=== PATIENT | female | born 1935 | race American Indian/Alaskan Native ===

== ENCOUNTER 2017-01-21 00:40 | Inpatient (IN) | payer MEDICARE ==
[2017-01-21] MEDS ORDERED: Sodium Chloride 0.9% 1,000 ML IV STA (01:13)
--- NOTE | 2017-01-21 01:15 | C.PDOC ---
History Of Present Illness 81 y/o F c PMHx HTN, DM p/w abdominal pain x 1 day. Pain is squeezing, intermittent, severe, diffuse, non-radiating, and associated with NBNB vomiting x 4. Denies fever, chest pain, dyspnea, back pain, dysuria, diarrhea, constipation. Time Seen by Provider: 01/21/17 00:54 Chief Complaint (Nursing): Abdominal Pain History Per: Patient History/Exam Limitations: no limitations Onset/Duration Of Symptoms: Days (1), Intermittent Episodes Current Symptoms Are (Timing): Still Present Severity: Severe Location Of Pain/Discomfort: Diffuse Radiation Of Pain To:: None Quality Of Discomfort: Pressure Associated Symptoms: Vomiting (NBNB, x4). denies: Fever, Diarrhea, Constipation , Urinary Symptoms Exacerbating Factors: None Alleviating Factors: None Recent travel outside of the [place]: No Additional History Per: Patient Past Medical History Reviewed: Historical Data, Nursing Documentation, Vital Signs Vital Signs: Last Vital Signs Temp 98.4 F 01/21/17 15:58 Pulse 66 01/21/17 15:58 Resp 20 01/21/17 15:58 BP 126/75 01/21/17 15:58 Pulse Ox 96 01/21/17 15:58 Family History: States: Unknown Family Hx - Social History Hx Alcohol Use: No Hx Substance Use: No - Immunization History Hx Tetanus Toxoid Vaccination: No Hx Influenza Vaccination: No Hx Pneumococcal Vaccination: No Review Of Systems Except As Marked, All Systems Reviewed And Found Negative. Constitutional: Negative for: Fever Cardiovascular: Negative for: Chest Pain Gastrointestinal: Positive for: Vomiting (NBNB, x4), Abdominal Pain Physical Exam - Physical Exam Additional Physical Exam Comments: Constitutional: No acute distress. Head: Normocephalic. Atraumatic. Eyes: PERRL. ENT: Moist mucous membranes. Neck: Supple. Cardiovascular: Regular rate. Radial pulse 2+ bilaterally. Chest: No tenderness. Respiratory: Clear to auscultation bilaterally. GI: Soft. Epigastric tenderness. Back: No CVA tenderness. Musculoskeletal: No tenderness or swelling of extremities. Skin: No rash. Neurologic: Alert, no focal deficit. ED Course And Treatment - Laboratory Results Result Diagrams: 01/21/17 01:18 01/21/17 01:18 O2 Sat by Pulse Oximetry: 100 (RA) Pulse Ox Interpretation: Normal Medical Decision Making Medical Decision Making: Plans: * CT Abd/Pel w/ IV * Blood work up * Morphine * Zofran * IV fluids * UA ED OBSERVATION Date of observation admission: 01/21/17 Time of observation admission: 01:13 - Observation admission statement Patient is being placed in observation because:: abd pain - Goals of Observation Goals of observation are:: CT - Progress Note Progress Note: [address] No acute distress. Labs unremarkable. [address] read. 0445 IMPRESSION: Dilated fluid-filled small bowel loops most notably in the left upper quadrant where there is tethered mesenteric stranding and adjacent free fluid. There are nondilated small bowel loops elsewhere. Findings concerning for internal hernia/closed-loop obstruction. 0540 Dr. Jackson paged. Patient states she feels better. No more vomiting in ED. EKG NSR 90 bpm, RBBB, no ST elevations. [address] Jackson's call back. Dr. Bolaños accepts patient to medical service and Dr. Chang consulted for surgery. Disposition - Disposition Disposition: HOSPITALIZED Disposition Time: 01:13 Condition: GUARDED - Clinical Impression Clinical Impression: Bowel obstruction - Scribe Statement The provider has reviewed the documentation as recorded by the Scribe Ernesto hill All medical record entries made by the Jooibe were at my direction and personally dictated by me. I have reviewed the chart and agree that the record accurately reflects my personal performance of the history, physical exam, medical decision making, and the department course for this patient. I have also personally directed, reviewed, and agree with the discharge instructions and disposition.
[2017-01-21] MEDS ORDERED: Sodium Chloride 0.9% 1,000 ML ONE (01:19)
[2017-01-21] MEDS ORDERED: Morphine 4 MG/ML VIAL ONE (01:19)
[2017-01-21 01:22] LABS: BASO # 0.1 K/uL (0.0-0.2); BASO % 0.6 % (0.0-2.0); EOS # 0.2 K/uL (0.0-0.7); EOS % 1.4 % (0.0-4.0); HEMATOCRIT 37.7 % (34.0-47.0); LYMPH # 2.4 K/uL (1.0-4.3); LYMPH % 21.7 % (20.0-40.0); MEAN CELL VOLUME 86.9 fL (81.0-99.0); MEAN CORPUSCULAR HEMOGLOBIN 28.7 pg (27.0-31.0); MEAN CORPUSCULAR HGB CONC 33.1 g/dL (33.0-37.0); MONO # 0.4 K/uL (0.0-0.8); RED CELL DISTRIBUTION WIDTH 13.2 % (11.5-14.5); WHITE BLOOD COUNT 10.9 K/uL (4.8-10.8)
[2017-01-21 01:33] LABS: ALKALINE PHOSPHATASE 119 U/L (38-126); ALT/SGPT 28 U/L (9-52); AST/SGOT 27 U/L (14-36); BILIRUBIN,TOTAL 0.6 mg/dL (0.2-1.3); BLOOD UREA NITROGEN 18 mg/dL (7-17); CALCIUM 9.6 mg/dl (8.6-10.4); CARBON DIOXIDE 20 mmol/L (22-30); CHLORIDE 100 mmol/L (98-107); GFR AFRICAN-AMERICAN > 60; GLUCOSE,RANDOM 297 mg/dL (65-105); POTASSIUM 3.6 mmol/L (3.6-5.2); SODIUM 138 mmol/L (132-148)
[2017-01-21] MEDS ORDERED: Iodixanol 320 MG/ML 100 ML BOTTLE IV ONE (02:32)
[2017-01-21 02:48] LABS: RBC URINE 3 /hpf (0-3); URINE BILIRUBIN NEGATIVE (NEGATIVE); URINE BLOOD NEGATIVE (NEGATIVE); URINE COLOR Straw (YELLOW); URINE GLUCOSE (UA) 3+ mg/dL (Normal); URINE KETONE 1+ mg/dL (NEGATIVE); URINE LEUKOCYTE ESTERASE 2+ Leu/uL (Negative); URINE PROTEIN 1+ mg/dL (NEGATIVE); URINE UROBILINOGEN NORMAL mg/dL (0.2-1.0); WBC URINE 16 /hpf (0-5)
--- NOTE | 2017-01-21 04:46 | CT ---
EXAM: CT Abdomen and Pelvis With Intravenous Contrast EXAM DATE/TIME: 01/21/2017 1:13 AM CLINICAL HISTORY: 81 years old, female; Pain; Abdominal pain; Additional info: Abdominal pain, vomiting TECHNIQUE: Axial computed tomography images of the abdomen and pelvis with intravenous contrast. All CT scans at this facility use one or more dose reduction techniques, viz.: automated exposure control; ma/kV adjustment per patient size (including targeted exams where dose is matched to indication; i.e. head); or iterative reconstruction technique. Coronal and sagittal reformatted images were created and reviewed. CONTRAST: 100 mL of VISI administered intravenously. COMPARISON: No relevant prior studies available. FINDINGS: The liver is normal. The spleen is normal. The pancreas is normal. No gallstones. No hydronephrosis or perinephric stranding. Multiple low attenuation left renal lesions some of which represent cysts and some of which are too small to accurately characterize. There are dilated fluid-filled small bowel loops most notably in the left upper quadrant measuring up to 2.5 cm in diameter with prominent wall and fold enhancement. There is stranding in the adjacent mesentery. There are also nondilated small bowel loops. Stranding in the mesentery adjacent to the left upper quadrant dilated fluid-filled loops are somewhat tethered appearance, a finding frequently associated with internal hernia or closed-loop obstruction. Small amount of free fluid is present surrounding these loops. The colon appears normal. A normal appendix is identified coronal images 50 through 62. A small amount of free fluid is present in the pelvis, an abnormal finding for a patient of this age. IMPRESSION: Dilated fluid-filled small bowel loops most notably in the left upper quadrant where there is tethered mesenteric stranding and adjacent free fluid. There are nondilated small bowel loops elsewhere. Findings concerning for internal hernia/closed-loop obstruction.
--- NOTE | 2017-01-21 07:00 | CP.PCM.CON ---
History of Present Illness - History of Present Illness History of Present Illness: General Surgery- Dr. Chang 81F w/ PMHx of DM, HTN, HLD, presented to [facility] ED for crampy generalized abdominal pain that started at 16:00. Pt has had a BM, however no flatus in the past day. NBNB emesis x4, most recent in the ED with just gastric contents from the meal prior. Denies F/C CP/SOB Diarrhea, numbness or tingling in the extremities. PMH: noted above PSH: Cataracts ALL: NKDA SocialHx: denies etoh, tobacco, illicit drug use Review of Systems - Review of Systems All systems: reviewed and no additional remarkable complaints except - Constitutional Constitutional: As Per HPI Past Patient History - Past Social History Smoking Status: Never Smoked - PSYCHIATRIC Hx Substance Use: No Meds Allergies/Adverse Reactions: Allergies Allergy/AdvReac Type Severity Reaction Status Date / Time No Known Allergies Allergy Verified 01/21/17 01:41 Physical Exam - Constitutional Appears: No Acute Distress - Head Exam Head Exam: ATRAUMATIC - Eye Exam Eye Exam: EOMI - Respiratory Exam Respiratory Exam: Rales, NORMAL BREATHING PATTERN. absent: Accessory Muscle Use , Rhonchi - Cardiovascular Exam Cardiovascular Exam: +S1, +S2 - GI/Abdominal Exam GI & Abdominal Exam: Distended, Normal Bowel Sounds, Soft, Tenderness. absent: Firm, Guarding, Rigid Additional comments: TTP midepigastrum and right periumbilical - Neurological Exam Neurological exam: Alert, Oriented x3 - Psychiatric Exam Psychiatric exam: Normal Affect - Skin Skin Exam: Intact, Normal Color Results - Vital Signs Recent Vital Signs: Last Vital Signs Temp 97.8 F 01/21/17 06:16 Pulse 89 01/21/17 06:16 Resp 20 01/21/17 06:16 BP 136/66 01/21/17 06:16 Pulse Ox 98 01/21/17 06:16 - Labs Result Diagrams: 01/21/17 01:18 01/21/17 01:18 Labs: Laboratory Results - last 24 hr 01/21/17 01/21/17 01/21/17 01:18 01:18 01:46 WBC 10.9 H RBC 4.34 Hgb 12.5 Hct 37.7 MCV 86.9 MCH 28.7 MCHC 33.1 RDW 13.2 Plt Count 254 MPV 9.0 Neut % (Auto) 72.3 Lymph % (Auto) 21.7 [place] % (Auto) 4.0 Eos % (Auto) 1.4 Baso % (Auto) 0.6 Neut # 7.9 H Lymph # 2.4 [place] # 0.4 Eos # 0.2 Baso # 0.1 PT INR APTT Sodium 138 Potassium 3.6 Chloride 100 Carbon Dioxide 20 L Anion Gap 22 H BUN 18 H Creatinine 1.0 Est GFR ( Amer) > 60 Est GFR (Non-Af Amer) 53 Random Glucose 297 H Calcium 9.6 Total Bilirubin 0.6 AST 27 ALT 28 Alkaline Phosphatase 119 Total Protein 8.0 Albumin 4.0 Globulin 4.1 H Albumin/Globulin Ratio 1.0 Lipase 197 Serum Ketones Negative 01/21/17 06:28 WBC RBC Hgb Hct MCV MCH MCHC RDW Plt Count MPV Neut % (Auto) Lymph % (Auto) [place] % (Auto) Eos % (Auto) Baso % (Auto) Neut # Lymph # [place] # Eos # Baso # PT 11.5 INR 1.0 APTT 28 Sodium Potassium Chloride Carbon Dioxide Anion Gap BUN Creatinine Est GFR ( Amer) Est GFR (Non-Af Amer) Random Glucose Calcium Total Bilirubin AST ALT Alkaline Phosphatase Total Protein Albumin Globulin Albumin/Globulin Ratio Lipase Serum Ketones Assessment & Plan - Assessment and Plan (Free Text) Assessment: 81F generalized ABD pain Plan: - NPO - IVF - pain control - medical management - further recs per Dr. Bernardo Ordonez PGY1
[2017-01-21] MEDS ORDERED: HYDROmorphone 1 mg/ml ISec IVP PRN (07:47)
[2017-01-21] MEDS: Sodium Chloride 0.9% 1,000 ML IV SCH ×2 (08:05→18:04)
[2017-01-21] MEDS ORDERED: HYDROmorphone 0.5 mg/0.5 ml ISec IVP PRN (08:23)
[2017-01-21] MEDS: metroNIDAZOLE IV 500 mg/100 ml 500 MG/100 ML BAG IVPB SCH (13:14)
[2017-01-21] MEDS: Ciprofloxacin 400mg/200ml D5W 400 MG/200 ML BAG IVPB SCH (14:05)
--- NOTE | 2017-01-21 18:50 | CP.PCM.HP ---
Past Patient History - Past Medical History & Family History Past Medical History?: Yes - Past Social History Smoking Status: Never Smoked - CARDIAC Hx Hypertension: Yes - ENDOCRINE/METABOLIC Hx Diabetes Mellitus Type 2: Yes Other/Comment: DX WITH DIABETES 2002 - MUSCULOSKELETAL/RHEUMATOLOGICAL Hx Falls: No - PSYCHIATRIC Hx Substance Use: No - SURGICAL HISTORY Other/Comment: CATARACT SX 2003 AND 2004 - ANESTHESIA Hx Anesthesia: No Hx Anesthesia Reactions: No Hx Malignant Hyperthermia: No Has any member of the family had a problem w/ anesthesia?: No Meds Allergies/Adverse Reactions: Allergies Allergy/AdvReac Type Severity Reaction Status Date / Time No Known Allergies Allergy Verified 01/21/17 01:41 Physical Exam - Constitutional Appears: Well - Head Exam Head Exam: ATRAUMATIC, NORMAL INSPECTION, NORMOCEPHALIC - Eye Exam Eye Exam: EOMI, Normal appearance, PERRL Pupil Exam: NORMAL ACCOMODATION, PERRL - ENT Exam ENT Exam: Mucous Membranes Moist, Normal Exam - Neck Exam Neck exam: Positive for: Normal Inspection - Respiratory Exam Respiratory Exam: Decreased Breath Sounds - Cardiovascular Exam Cardiovascular Exam: REGULAR RHYTHM, +S1, +S2 - GI/Abdominal Exam GI & Abdominal Exam: Diminished Bowel Sounds, Soft - Rectal Exam Rectal Exam: Deferred Results - Vital Signs Recent Vital Signs: Last Vital Signs Temp 98.4 F 01/21/17 15:58 Pulse 66 01/21/17 15:58 Resp 20 01/21/17 15:58 BP 126/75 01/21/17 15:58 Pulse Ox 96 01/21/17 15:58 - Labs Result Diagrams: 01/21/17 01:18 01/21/17 01:18 Labs: Laboratory Results - last 24 hr 01/21/17 01/21/17 01/21/17 09:44 11:07 16:22 POC Glucose (mg/dL) 257 H 292 H 219 H
--- NOTE | 2017-01-21 19:26 | CARD ---
APPROVED REPORT EKG Measurement Heart [id number] <Conclusion> Normal sinus rhythm Left axis deviation Right bundle branch block Abnormal ECG
[2017-01-21 20:26] VITALS: O2SAT 100
[2017-01-22] MEDS: metroNIDAZOLE IV 500 mg/100 ml 500 MG/100 ML BAG IVPB SCH ×2 (00:04→12:22)
[2017-01-22 00:11] VITALS: PULSE 62
[2017-01-22] MEDS: Ciprofloxacin 400mg/200ml D5W 400 MG/200 ML BAG IVPB SCH ×2 (01:17→12:22)
[2017-01-22] MEDS: Sodium Chloride 0.9% 1,000 ML IV SCH ×2 (04:00→09:01)
[2017-01-22 08:45] VITALS: BP 135/65; RESP 20; TEMP 97.8
--- NOTE | 2017-01-22 09:11 | CP.PCM.PN ---
Subjective - Date & Time of Evaluation Date of Evaluation: 01/22/17 Time of Evaluation: 09:09 - Subjective Subjective: General Surgery - Dr. Chang Pt S&E NAEO. Pt is tolerating regular diet this morning. She is passing gas and had a BM last night. She states her abdominal pain is gone and she has no further N/V, SOB/Cp, F/C. Objective - Vital Signs/Intake and Output Vital Signs (last 24 hours): Temp Pulse Resp BP Pulse Ox 97.8 F 62 20 135/65 100 01/22/17 08:00 01/22/17 08:00 01/22/17 08:00 01/22/17 08:00 01/22/17 08:00 Intake and Output: 01/22/17 01/22/17 06:59 18:59 Intake Total 1999 Balance 1999 - Medications Medications: Current Medications Hydromorphone HCl (Dilaudid) 0.5 mg IVP Q3H PRN PRN Reason: Pain, severe (8-10) Stop: 01/24/17 08:24 Sodium Chloride (Sodium Chloride 0.9%) 1,000 mls @ 100 mls/hr IV .Q10H REPLACED BY [facility] Last Admin: 01/22/17 09:01 Dose: 100 mls/hr Metronidazole (Flagyl) 500 mg in 100 mls @ 100 mls/hr IVPB Q12H [facility] Last Admin: 01/22/17 00:04 Dose: 100 mls/hr Ciprofloxacin (Cipro 400mg/200ml Dsw) 400 mg in 200 mls @ 133 mls/hr IVPB Q12H REPLACED BY [facility] Last Admin: 01/22/17 01:17 Dose: 133 mls/hr Ondansetron HCl (Zofran Inj) 4 mg IVP Q4H PRN PRN Reason: Nausea/Vomiting Pantoprazole Sodium (Protonix Inj) 40 mg IVP DAILY REPLACED BY [facility] Last Admin: 01/22/17 09:01 Dose: 40 mg Pneumococcal Polyvalent Vaccine (Pneumovax 23 Vaccine) 0.5 ml IM .ONCE ONE Stop: 01/23/17 10:01 - Labs Labs: PT 11.5 SECONDS (9.7-12.2) 01/21/17 06:28 INR 1.0 01/21/17 06:28 APTT 28 SECONDS (21-34) 01/21/17 06:28 - Constitutional Appears: No Acute Distress - Head Exam Head Exam: ATRAUMATIC, NORMAL INSPECTION, NORMOCEPHALIC - Respiratory Exam Respiratory Exam: NORMAL BREATHING PATTERN. absent: Respiratory Distress - GI/Abdominal Exam GI & Abdominal Exam: Soft. absent: Distended, Guarding, Rigid, Tenderness, Rebound - Neurological Exam Neurological Exam: Alert, Oriented x3 - Psychiatric Exam Psychiatric exam: Normal Affect, Normal Mood - Skin Skin Exam: Dry, Intact Assessment and Plan - Assessment and Plan (Free Text) Assessment: 81 yo f w/ abdominal pain likely d/t gastroenteritis -Pain resolved -Tolerating regular diet -Having bowel function -Clear for discharge from surgical standpoint DW Dr Bernardo Gar PGY3
[2017-01-22] MEDS ORDERED: Pneumococcal 23-Valent Vaccine IM ONE (13:45)
--- NOTE | 2017-01-22 13:47 | CP.PCM.PN ---
Subjective - Date & Time of Evaluation Date of Evaluation: 01/22/17 Time of Evaluation: 13:46 - Subjective Subjective: PT SEEN BY SURGERY AND CLEARED FOR D/C. + BM AND PASSING GAS. PT EATING AND TOLERATING FOOD. OK TO D/C HOME PER DR. Nika CREWS. ALL D/C INFORMATION AND F/U DISCUSSED WITH PT AND FAMILY AT BEDSIDE. RX GIVEN FOR CIPRO X5 MORE DAYS PER DR. CREWS. NO FURTHER ORDERS. Objective - Vital Signs/Intake and Output Vital Signs (last 24 hours): Temp Pulse Resp BP Pulse Ox 97.8 F 62 20 135/65 100 01/22/17 08:00 01/22/17 08:00 01/22/17 08:00 01/22/17 08:00 01/22/17 08:00 Intake and Output: 01/22/17 01/22/17 06:59 18:59 Intake Total 1999 Balance 1999 - Medications Medications: Current Medications Hydromorphone HCl (Dilaudid) 0.5 mg IVP Q3H PRN PRN Reason: Pain, severe (8-10) Stop: 01/24/17 08:24 Sodium Chloride (Sodium Chloride 0.9%) 1,000 mls @ 100 mls/hr IV .Q10H [facility] Last Admin: 01/22/17 09:01 Dose: 100 mls/hr Metronidazole (Flagyl) 500 mg in 100 mls @ 100 mls/hr IVPB Q12H [facility] Last Admin: 01/22/17 12:22 Dose: 100 mls/hr Ciprofloxacin (Cipro 400mg/200ml Dsw) 400 mg in 200 mls @ 133 mls/hr IVPB Q12H [facility] Last Admin: 01/22/17 12:22 Dose: 133 mls/hr Ondansetron HCl (Zofran Inj) 4 mg IVP Q4H PRN PRN Reason: Nausea/Vomiting Pantoprazole Sodium (Protonix Inj) 40 mg IVP DAILY [facility] Last Admin: 01/22/17 09:01 Dose: 40 mg - Labs Labs: PT 11.5 SECONDS (9.7-12.2) 01/21/17 06:28 INR 1.0 01/21/17 06:28 APTT 28 SECONDS (21-34) 01/21/17 06:28
--- NOTE | 2017-01-22 15:13 | CP.PCM.DIS ---
Provider - Provider Date of Admission: 01/21/17 06:57 Attending physician: Madison Bolaños MD Hospital Course - Lab Results Lab Results: Most Recent Lab Values WBC 10.9 K/uL (4.8-10.8) H 01/21/17 01:18 RBC 4.34 Mil/uL (3.80-5.20) 01/21/17 01:18 Hgb 12.5 g/dL (11.0-16.0) 01/21/17 01:18 Hct 37.7 % (34.0-47.0) 01/21/17 01:18 MCV 86.9 fL (81.0-99.0) 01/21/17 01:18 MCH 28.7 pg (27.0-31.0) 01/21/17 01:18 MCHC 33.1 g/dL (33.0-37.0) 01/21/17 01:18 RDW 13.2 % (11.5-14.5) 01/21/17 01:18 Plt Count 254 K/uL (130-400) 01/21/17 01:18 MPV 9.0 fL (7.2-11.7) 01/21/17 01:18 Neut % (Auto) 72.3 % (50.0-75.0) 01/21/17 01:18 Lymph % (Auto) 21.7 % (20.0-40.0) 01/21/17 01:18 [place] % (Auto) 4.0 % (0.0-10.0) 01/21/17 01:18 Eos % (Auto) 1.4 % (0.0-4.0) 01/21/17 01:18 Baso % (Auto) 0.6 % (0.0-2.0) 01/21/17 01:18 Neut # 7.9 K/uL (1.8-7.0) H 01/21/17 01:18 Lymph # 2.4 K/uL (1.0-4.3) 01/21/17 01:18 [place] # 0.4 K/uL (0.0-0.8) 01/21/17 01:18 Eos # 0.2 K/uL (0.0-0.7) 01/21/17 01:18 Baso # 0.1 K/uL (0.0-0.2) 01/21/17 01:18 PT 11.5 SECONDS (9.7-12.2) 01/21/17 06:28 INR 1.0 01/21/17 06:28 APTT 28 SECONDS (21-34) 01/21/17 06:28 Sodium 138 mmol/L (132-148) 01/21/17 01:18 Potassium 3.6 mmol/L (3.6-5.2) 01/21/17 01:18 Chloride 100 mmol/L (98-107) 01/21/17 01:18 Carbon Dioxide 20 mmol/L (22-30) L 01/21/17 01:18 Anion Gap 22 (10-20) H 01/21/17 01:18 BUN 18 mg/dL (7-17) H 01/21/17 01:18 Creatinine 1.0 MG/DL (0.7-1.2) 01/21/17 01:18 Est GFR ( Amer) > 60 01/21/17 01:18 Est GFR (Non-Af Amer) 53 01/21/17 01:18 POC Glucose (mg/dL) 278 mg/dL (65-110) H 01/22/17 13:04 Random Glucose 297 mg/dL (65-105) H 01/21/17 01:18 Calcium 9.6 mg/dl (8.6-10.4) 01/21/17 01:18 Total Bilirubin 0.6 mg/dL (0.2-1.3) 01/21/17 01:18 AST 27 U/L (14-36) 01/21/17 01:18 ALT 28 U/L (9-52) 01/21/17 01:18 Alkaline Phosphatase 119 U/L (38-126) 01/21/17 01:18 Total Protein 8.0 g/dL (6.3-8.3) 01/21/17 01:18 Albumin 4.0 g/dL (3.5-5.0) 01/21/17 01:18 Globulin 4.1 gm/dL (2.2-3.9) H 01/21/17 01:18 Albumin/Globulin Ratio 1.0 (1.0-2.1) 01/21/17 01:18 Lipase 197 U/L (23-300) 01/21/17 01:18 Urine Color Straw (YELLOW) 01/21/17 01:13 Urine Clarity Clear (Clear) 01/21/17 01:13 Urine pH 8.0 (5.0-8.0) 01/21/17 01:13 Ur Specific [place] 1.010 (1.003-1.030) 01/21/17 01:13 Urine Protein 1+ mg/dL (NEGATIVE) H 01/21/17 01:13 Urine Glucose (UA) 3+ mg/dL (Normal) H 01/21/17 01:13 Urine Ketones 1+ mg/dL (NEGATIVE) H 01/21/17 01:13 Urine Blood Negative (NEGATIVE) 01/21/17 01:13 Urine Nitrate Negative (NEGATIVE) 01/21/17 01:13 Urine Bilirubin Negative (NEGATIVE) 01/21/17 01:13 Urine Urobilinogen Normal mg/dL (0.2-1.0) 01/21/17 01:13 Ur Leukocyte Esterase 2+ Samia/uL (Negative) H 01/21/17 01:13 Urine WBC (Auto) 16 /hpf (0-5) H 01/21/17 01:13 Urine RBC (Auto) 3 /hpf (0-3) 01/21/17 01:13 Ur Squamous Epith Cells 1 /hpf (0-5) 01/21/17 01:13 Serum Ketones Negative (NEGATIVE) 01/21/17 01:46 Discharge Exam - Head Exam Head Exam: ATRAUMATIC, NORMAL INSPECTION, NORMOCEPHALIC - Eye Exam Eye Exam: EOMI, Normal appearance, PERRL Pupil Exam: NORMAL ACCOMODATION, PERRL - Respiratory Exam Respiratory Exam: Decreased Breath Sounds - Cardiovascular Exam Cardiovascular Exam: REGULAR RHYTHM, +S1, +S2 - GI/Abdominal Exam GI & Abdominal Exam: Diminished Bowel Sounds, Soft - Rectal Exam Rectal Exam: Deferred Discharge Plan - Discharge Medications Prescriptions: Ciprofloxacin [Cipro] 500 mg PO Q12 #6 tab Saccharomyces Boulardii [Florastor] 250 mg PO Q12 #6 capsule - Follow Up Plan Condition: GUARDED Disposition: HOME/ ROUTINE Instructions: Gastroenteritis (DC), Gastroenteritis (GEN), Acute Nausea and Vomiting (DC), Bowel Obstruction (DC), Bowel Obstruction (GEN) Additional Instructions: FOLLOW UP WITH DR. TAYLOR IN HIS OFFICE NEXT WEEK ALREADY SCHEDULED. YOU CAN GET THE FLU VACCINE WITH YOUR DOCTOR. CONTINUE YOUR REGULAR HOME MEDICATIONS USUAL. NEW PRESCRIPTION SENT TO YOUR PHARMACY IS CIPRO (ANTIBIOTIC) FOR YOUR STOMACH--- START TOMORROW (TUESDAY) AND TAKE UNTIL COMPLETED. YOU HAVE ALSO BEEN GIVEN A PRESCRIPTION FOR FLORASTOR, WHICH IS A PROBIOTIC AND PROTECTS YOUR STOMACH AND INTESTINES WHILE ON ANTIBIOTICS. IF YOUR SYMPTOMS RETURN, NOTIFY YOUR DOCTOR AND RETURN TO THE ER. Referrals: Aram Chang MD [Staff Provider] - Chandana Taylor MD [Staff Provider] - Pablo Bolaños MD [Staff Provider] -
== END 2017-01-22 16:08 | disposition home or self-care (01) | DRG 391 ==
LOC: C.ER 00:40 → C.9OBSV 01:13 → OBSVTOIN 06:57 → C.9E 07:03 → C.5S 07:52
PROVIDERS: ADMIT Internal Medicine Nephrology; ATTEND Internal Medicine Nephrology
DX: K52.9 Noninfective gastroenteritis and colitis, unspecified (principal); K56.2 Volvulus; E11.9 Type 2 diabetes mellitus without complications; I10 Essential (primary) hypertension; E78.5 Hyperlipidemia, unspecified